=== PATIENT | male | born 2000 | race Caucasian/White ===

== ENCOUNTER → 2022-02-24 10:31 | Outpatient (CLI) | payer BC, SELFPAY | PROVIDERS: PCP Internal Medicine; Visit Provider Internal Medicine | DX: Z20.822 Contact with and (suspected) exposure to COVID-19 (principal) | CPT/HCPCS: C9803; U0003; U0005 ==

== ENCOUNTER → 2022-02-25 14:50 | Outpatient (CLI) | payer BC, SELFPAY | PROVIDERS: PCP Internal Medicine; Visit Provider Internal Medicine | DX: Z20.822 Contact with and (suspected) exposure to COVID-19 (principal) | CPT/HCPCS: C9803; U0003; U0005 ==

== ENCOUNTER → 2023-06-14 11:10 | Outpatient (CLI) | payer BC, SELFPAY | PROVIDERS: PCP Internal Medicine; Visit Provider Internal Medicine | DX: U07.1 COVID-19 (principal); J06.9 Acute upper respiratory infection, unspecified | CPT/HCPCS: 87635 ==

== ENCOUNTER 2024-06-09 13:42 | Emergency (ER) | payer BC, SELFPAY ==
[2024-06-09 14:25] VITALS: BP 141/90; PULSE 87; RESP 20; TEMP 36.9; O2SAT 98; BMI 29.6
[2024-06-09 14:50] LABS: UTC Influenza A Antigen Negative (Negative); UTC Influenza B Antigen Negative (Negative); UTC Strep Screen (Rapid) Negative (Negative)
--- NOTE | 2024-06-09 14:56 | EXP.UTC ---
Discharge Plan Disposition Patient Disposition: Home, Self-Care Condition: Good Prescriptions Prescriptions: New azithromycin [Zithromax Z-Jared] 250 mg tablet See Rx Instructions .ROUTE .COMPLEX 5 Days Qty: 6 0RF Rx Instructions: For 250 mg dose pack: take 500 mg today (day 1), then 250 mg for 4 days (days 2-5) methylprednisolone [Medrol (Jared)] 4 mg tablets,dose pack See Rx Instructions .Route .COMPLEX 6 Days Qty: 21 0RF Rx Instructions: taper pack; [id number]-[id number]-SN [Bromfed DM] 2-30-10 mg/5 mL syrup 10 ml PO Q6H PRN (Reason: cold symptoms) Qty: 150 0RF Referrals Follow up/Referrals: Harpreet Herrera MD [Primary Care Provider] - See instructions Activity Restrictions/Add. Instructions Additional Instructions/Restrictions: *Monitor Temp, Over the counter Motrin or Tylenol as directed/as needed Tylenol every 4 hours and Motrin every 6 hours (as long as your family doctor has told you that you can take it) for fever or pain. and straight to ER if unable to lower temp less than 101.0 after medication given *Warm salt water gargles may help to soothe the throat *Throat Lozenges? *Warm fluids like tea with honey may help to soothe the throat? *Sleep elevated *Humidifier/Vaporizer *Bromfed may cause drowsiness. Know how it effects you (your child) before driving, caring for small child, or sending your child to school. Not other antihistamines/allergy medications while taking bromfed Your throat swab was sent for culture. Those results are typically sent to your primary care. Be sure to follow up in 2-3 days with your family doctor/primary care physician if no improvement so they can review those result and treat if necessary. If you don?t have a primary care doctor, I recommend you get one but in the mean time, you will have to return to a walk in clinic Follow up IMMEDIATELY for new or worsening symptoms or no Noticeable improvement over the next 48-72 hours. 911 for difficulty breathing or swallowing Clinical Impressions Clinical Impression: Sinusitis Instructions Patient Instructions: DI for Sinusitis, Sinusitis Print Language Print Language: [place] Discharge ED Provider: Alesha Parsons Alanna [facility] HPI General Stated complaint: temp x2 days, cough, body aches Mode of Arrival: Ambulatory Source of Information: Patient Limitations: No Limitations Time Seen by Provider: 06/09/24 14:57 Description of Symptoms (Recalled from Triage Doc. by RN): PATIENT C/O COUGH, FEVER, AND BODY ACHES X 2 DAYS HEENT Symptoms (Recalled from RN notes): No Resp Symptoms (Recalled from RN notes): Yes Skin Symptoms (Recalled from RN notes): No MS Symptoms (Recalled from RN notes): No Functional Status (Recalled from RN notes): WNL History of Present Illness Provider Complaint: Patient states that he has been having sinus pressure and pain, headache, fever, chills, and body aches along with cough States he took 2 home COVID test and they was negative but today he was still not feeling well so he came in to get checked worried he may have a sinus infection or something Related Data Previous Rx's ?Medication ?Instructions ?Recorded azithromycin 250 mg tablet See Rx Instructions PO .COMPLEX 5 06/09/24 (Zithromax Z-Jared) days #6 tabs gncxtbgktdrenei-koomqpzdeklqqca-NG 10 ml PO Q6H PRN cold symptoms 06/09/24 2 mg-30 mg-10 mg/5 mL oral syrup #150 mL (Bromfed DM) methylprednisolone 4 mg tablets in See Rx Instructions .Route 06/09/24 a dose pack (Medrol (Jared)) .COMPLEX 6 days #21 tabs Allergies Allergy/AdvReac Type Severity Reaction Status Date / Time No Known Allergies Allergy Verified 03/14/19 22:03 Worker's Comp Is this a Worker's Comp case?: No [facility] Disclaimer: The information contained in this section may have been updated after the patient was seen, as this information can be updated by other users. Medical History (Updated 06/09/24 @ 15:06 by Alesha Parsons APRN) No significant past medical history Social History Smoking Status: Unknown if ever smoked alcohol intake: never current occupational status: employed Travel in the last 8 weeks: None housing: apartment ROS Obtained: Yes All systems reviewed & no additional complaints except as documented and Yes Systems reviewed as appropriate & no additional complaints except as documented Constitutional Constitutional: Reports system reviewed and no additional complaints, except as documented, Reports as per HPI, Reports fever(s) and Reports headache(s) ENT Ears, Nose, Mouth, and Throat: Reports system reviewed and no additional complaints, except as documented, Reports as per HPI, Reports headache(s), Reports nasal congestion and Reports sinus pressure Cardiovascular Cardiovascular: Reports system reviewed and no additional complaints, except as documented and Reports as per HPI Respiratory Respiratory: Reports system reviewed and no additional complaints, except as documented, Reports as per HPI and Reports cough Gastrointestinal Gastrointestingal: Reports system reviewed and no additional complaints, except as documented and as per HPI Neurologic Neurologic: Reports headache(s) Physical Exam General General appearance: alert and in no apparent distress ENT ENT exam: Present mucous membranes moist Expanded ENT Exam Nose exam: Present sinus tenderness Throat exam: Present other (Pharyngeal erythema noted with PND) Respiratory Respiratory exam: Present normal lung sounds bilaterally; Absent respiratory distress or wheezes Cardiovascular Cardiovascular exam: Present regular rate, normal rhythm and normal heart sounds Abdominal Exam Abdominal exam: Present soft, distention and normal bowel sounds Neurological Exam Neurological exam: Present alert, oriented X3 and normal gait Medical Decision Making Roberto Inquiry Pt receiving controlled substance: No Roberto was queried for this patient: No Vital Signs: 06/09/24 14:25 Temperature 98.5 F Temperature Source Oral Pulse Rate [Left Brachial] 87 Respiratory Rate 20 Blood Pressure [Left Arm] 141/90 H Blood Pressure Mean [Left Arm] 107 Blood Pressure Source [Left Arm] Automatic Cuff Blood Pressure Position [Left Arm] Sitting 02 Sat by Pulse Oximetry 98 Oxygen Delivery Method Room Air Lab Data Lab results reviewed: Yes I reviewed the patient's lab results. Lab Results 06/09/24 14:39: Influenza Type A Ag Negative, Influenza Type B Ag Negative, Strep Scn Rapid Clinic Negative Orders (Tests/Meds): ORDERS Category Date Time Status Strep Screen Confirmation Stat Micro 06/09/24 14:39 Received
[2024-06-09 15:06] VITALS: BP 141/90; PULSE 87; RESP 20; TEMP 36.9; O2SAT 98
== END 2024-06-09 15:09 | disposition home or self-care (01) ==
PROVIDERS: Emergency Provider Nurse Practitioner; PCP Internal Medicine
DX: J01.90 Acute sinusitis, unspecified (principal); R51.9 Headache, unspecified; R50.9 Fever, unspecified
CPT/HCPCS: 87804; 87880; 99204; 99212; G0463

== ENCOUNTER 2025-10-01 14:10 | Outpatient (CLI) | payer BC, SELFPAY ==
--- OUTSIDE RECORDS SUMMARY | 2025-10-01 14:16 | XMS_ITS | Clinical Summary ---
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 Name Role Phone [email or web address] Primary Care Provider Unavailabl e Allergies No known active allergies Medications cephalexin (KEFLEX) 500 MG capsule 02/26/2022 Active Active Problems Problem Noted Date Diagnosed Date COVID 06/21/2023 Social History Tobacco Use Types Packs/Day Years Used Date Smoking Tobacco: Never Smokeless Tobacco: Current Snuff Tobacco Cessation:Ready to Q uit: Not Asked; Counseling Given: Not Answered Intimate Partner Violence Answer Date R ecorded Insults You Not on file 02/17/2021 Threatens You Not on file 02/17/2021 Screams at You Not on file 02/17/2021 Physically Hurt Not on file 02/17/2021 Intimate Partner Violence Score Not on file 02/17/2021 Depression Answer Date Recorded PHQ Total Score 0 06/21/2023 Stress Answer Date Recorded Stress in your Life Not on file 09/10/2024 Dealing with Stress 3 09/10/2024 Sex and Gender Information Value Date Recorded Sex Assigned at Not on file 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 Gender Identity Not on file Sexual Orientation Not on file Last Filed Vital Signs Vital Sign Reading Time Taken Comments Blood Pressure 108/71 06/21/2023 4:54 PM EDT Pulse 55 06/21/2023 4:54 PM EDT Temperature 36.2 C (97.1 F) 06/21/2023 4:54 PM EDT Respiratory Rate 18 03/08/2022 5:31 PM EDT Oxygen Saturation 98% 06/21/2023 4:54 PM EDT Inhaled Oxygen Concentration - - Weight 81.4 kg (179 lb 6.4 oz) 07/31/2020 9:45 P M EDT Height 170.2 cm (5' 7 ) 07/31/2020 9:45 PM EDT Body Mass Index 28.1 07/31/2020 9:45 PM EDT Plan of Treatment Health Maintenance Due Date Last Done Comments Dental Cleaning/Exam 1998 HIV Screening 1998 Hepatitis C Screening 1998 HPV Immunization (1 - Male 3 -dose series) 2013 Hep B Infection Screening - Triple Screen 01/08/2016 Hepatitis B Immunization (1 of 3 - 19+ 3-dose series) 2017 Tetanus Diphtheria and Pertu ssis Immunization (1 - Tdap) 2017 Annual Preventive Exam 10/03/2020 10/03/2019 Covid-19 Immunization (1 - 2 - season) 2025 Influenza Immunization (#1) 2025 Hepatitis A Immunization Aged Out 12/02/2018 No longer eligible based on patient's age to complete this topic HIB Immunization Aged Out No longer e ligible based on patient's age to complete this topic Pneumococcal Immunization Aged Out No longer eligible based on patient's age to complete this topic Polio Immunization Aged Out No longer eligible based on patient's age to complete this topic Varicella Immunization Aged Out No lo nger eligible based on patient's age to complete this topic Insurance [place] [id number] OPT OUT NO COPAY NB Care Teams 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
== END 2025-10-01 23:59 | disposition home or self-care (01) ==
LOC: LAB.DROPOF 14:11
PROVIDERS: PCP Internal Medicine; Visit Provider Internal Medicine
DX: B34.9 Viral infection, unspecified (principal)
CPT/HCPCS: 87635